=== PATIENT | female | born 1980 | race Caucasian/White ===

== ENCOUNTER 2018-12-24 00:02 | Emergency (ER) | payer SELFPAY ==
--- NOTE | 2018-12-24 00:50 | PDOC ---
*Physical Exam - Vital Signs Last Vital Signs Temp Pulse Resp BP Pulse Ox 98.9 F 74 17 127/79 95 12/24/18 00:20 12/24/18 00:20 12/24/18 00:20 12/24/18 00:20 12/24/18 00:20 Medical Decision Making - Medical Decision Making 12/24/18 00:50 Patient seen by the advanced practice provider under my direct supervision. Ancillary testing reviewed as necessary. I agree with plan as outlined by the advanced practice provider. 12/24/18 01:33 Area locally anesthetized with 1% lidocaine injection for anesthesia Probe with blunt forceps did suggest foreign body which was deep within the thenar tissue At this time further dissection would present more potential risk than benefit, patient will be given tetanus and antibiotics and will be discharged to follow- up outpatient with hand surgery Discharge - Discharge Information Problems reviewed: Yes Clinical Impression/Diagnosis: Acute foreign body of hand Qualifiers: Encounter type: initial encounter Laterality: right Qualified Code(s): S60.551A - Superficial foreign body of right hand, initial encounter Disposition: HOME - Additional Discharge Information Prescriptions: Cephalexin Monohydrate [Keflex -] 250 mg PO Q8H #21 capsule - Follow up/Referral Referrals: Saúl Nicholas MD [Staff Physician] - - Patient Discharge Instructions Patient Printed Discharge Instructions: DI for Removal of Foreign Body From Skin - Post Discharge Activity
[2018-12-24 00:51] VITALS: BP 127/79; PULSE 74; TEMP 98.9; BMI 24.7
[2018-12-24] MEDS ORDERED: LIDOCAINE HCL 1%, 10 MG/ML (20ML VIAL) ONE (01:01)
[2018-12-24] MEDS ORDERED: LIDOCAINE HCL 1%, 10 MG/ML (50 mL VIAL) SQ ONE (01:24)
--- NOTE | 2018-12-24 01:25 | PDOC ---
History of Present Illness - General Chief Complaint: Injury Stated Complaint: R HAND INJURY Time Seen by Provider: 12/24/18 00:40 History Source: Patient - History of Present Illness Initial Comments: 12/24/18 01:35 38 year old female c/o foreign body to right palm proximal to right thumb. patient reports that a piece of wood broke off in the palm. + sensation to distal end of finger full rom to right thumb last tetanus 4 years ago Past History - Past Medical History Allergies/Adverse Reactions: Allergies Allergy/AdvReac Type Severity Reaction Status Date / Time No Known Allergies Allergy Verified 12/24/18 00:48 Home Medications: Ambulatory Orders Cephalexin Monohydrate [Keflex -] 250 mg PO Q8H #21 capsule 12/24/18 CVA: No COPD: No - Psycho Social/Smoking Cessation Hx Smoking History: Never smoked Have you smoked in the past 12 months: No Information on smoking cessation initiated: No Hx Alcohol Use: No Drug/Substance Use Hx: No Review of Systems - Review of Systems Able to Perform ROS?: Yes Is the patient limited [place] proficient: No *Physical Exam - Vital Signs Last Vital Signs Temp Pulse Resp BP Pulse Ox 98.9 F 74 17 127/79 95 12/24/18 00:20 12/24/18 00:20 12/24/18 00:20 12/24/18 00:20 12/24/18 00:20 - Physical Exam General Appearance: Yes: Appropriately Dressed Extremity: positive: Other (abrasion to right palm proximal to distal end of thumb. no foreign body noted outside) Integumentary: positive: Normal Color, Dry, Warm Neurologic: positive: Fully Oriented, Alert Procedures - Consent Consent obtained: Verbal ED Treatment Course - RADIOLOGY Radiology Studies Ordered: Category Date Time Status HAND- RIGHT [RAD] Stat Radiology 12/24/18 00:41 Taken ED Progress Note - Progress Note Progress Note: 12/24/18 01:38 A: right hand foreign body to hand P: xray: no radioopaque foreign body noted. pain control cephalexin wound evaluated and superficially explored by Dr. yoder Discharge - Discharge Information Problems reviewed: Yes Clinical Impression/Diagnosis: Acute foreign body of hand Qualifiers: Encounter type: initial encounter Laterality: right Qualified Code(s): S60.551A - Superficial foreign body of right hand, initial encounter Disposition: HOME - Additional Discharge Information Prescriptions: Cephalexin Monohydrate [Keflex -] 250 mg PO Q8H #21 capsule - Follow up/Referral Referrals: Saúl Nicholas MD [Staff Physician] - Call tomorrow - Patient Discharge Instructions Patient Printed Discharge Instructions: DI for Removal of Foreign Body From Skin Additional Instructions: take cephalexin as prescribed follow up with a hand doctor as soon as possible. Additional Instructions: * Please call your personal physician to report your Emergency Department visit and to report your progress, if any. * If there is no improvement in symptoms in 2 days call your physician. * Return to the Emergency Department for any worsening symptoms. - Post Discharge Activity Work/Back to School Note: Back to Work
[2018-12-24] MEDS ORDERED: IBUPROFEN 400 MG TABLET (FP) PO ONE ×2 (01:29→01:48)
== END 2018-12-24 01:53 | disposition home or self-care (01) ==
LOC: JER 00:02
PROC: 3E013BZ Introduction of Anesthetic Agent into Subcutaneous Tissue, Percutaneous Approach (ICD-10-PCS; principal; 2018-12-24)
PROC: 0JCJ3ZZ Extirpation of Matter from Right Hand Subcutaneous Tissue and Fascia, Percutaneous Approach (ICD-10-PCS; 2018-12-24)
DX: S60.551A Superficial foreign body of right hand, initial encounter (principal); W45.8XXA Other foreign body or object entering through skin, initial encounter; Y93.89 Activity, other specified; Y92.89 Other specified places as the place of occurrence of the external cause; Y99.8 Other external cause status
CPT/HCPCS: 73130-TC-RT-FY; 99281-25

== ENCOUNTER → 2020-08-04 | Day surgery (SDC) | payer OTHER | END | disposition home or self-care (01) | LOC: JRADUS-SUR 10:12 | PROVIDERS: ATTEND Family Medicine Geriatric Medicine | PROC: 0H9T3ZX Drainage of Right Breast, Percutaneous Approach, Diagnostic (ICD-10-PCS; principal; 2020-08-04) | DX: N60.21 Fibroadenosis of right breast (principal); N60.01 Solitary cyst of right breast | CPT/HCPCS: 19083; 87899; A4648 ==

== ENCOUNTER 2022-07-01 00:48 | Emergency (ER) | payer OTHER ==
[2022-07-01 01:05] VITALS: BP 135/77; PULSE 87; RESP 18; TEMP 98.2; BMI 27.3
[2022-07-01] MEDS ORDERED: DEXAMETHASONE SOD PHOSPHATE 10 MG/1 ML VIAL IVPUSH ONE (01:51)
[2022-07-01] MEDS ORDERED: ALBUTEROL SO4 2.5/IPRATROPIUM 0.5 INH SOL 3 ML VIAL.NEB. NEB ONE (01:55)
[2022-07-01] MEDS ORDERED: DEXAMETHASONE SOD PHOSPHATE 10 MG/1 ML VIAL ONE (01:55)
[2022-07-01] MEDS: ALBUTEROL SO4 2.5/IPRATROPIUM 0.5 INH SOL 3 ML VIAL.NEB. NEB SCH ×4 (02:04→02:47)
== END 2022-07-01 04:41 | disposition home or self-care (01) ==
LOC: JER 00:48
PROC: 3E033GC Introduction of Other Therapeutic Substance into Peripheral Vein, Percutaneous Approach (ICD-10-PCS; principal; 2022-07-01)
PROC: 3E0F7GC Introduction of Other Therapeutic Substance into Respiratory Tract, Via Natural or Artificial Opening (ICD-10-PCS; 2022-07-01)
DX: R07.9 Chest pain, unspecified (principal); R05.9 Cough, unspecified; R06.02 Shortness of breath; B34.9 Viral infection, unspecified
CPT/HCPCS: 71046-TC-FY; 84703; 99284-25; J1100